=== PATIENT | male | born 1980 | race Caucasian/White ===

== ENCOUNTER 2018-08-13 14:27 | Emergency (ER) | payer OTHER ==
[~2018-08-13] VITALS: Ht 182.9 cm; Wt 141.1 kg
--- NOTE | 2018-08-13 14:30 | NUR ---
BIB RA 88,SEIZURE EPISODE WHILE AT WORK GROOMING A PUPPY, LAST SEIZURE WAS 2 YEARS AGO, NON-COMPLIANT W/ MEDICATION,MARIJUANA USER. SKIN IS WARM AND DIAPHORETIC. PLACED ON THE MONITOR. AWAITING MD FOR EVAL.
[2018-08-13 15:07] LABS: BASOPHILS % (AUTO) 0.6 % (0.0-2.0); EOSINOPHILS % (AUTO) 0.3 % (0.0-6.0); HEMATOCRIT 49 % (39-51); HEMOGLOBIN 16.4 g/dL (13.5-17.5); LYMPHOCYTES # (AUTO) 1.8 /CMM (0.8-4.8); LYMPHOCYTES % (AUTO) 24.1 % (20.0-44.0); MEAN CORPUSCULAR HGB CONC 34 g/dl (31.0-36.0); MEAN CORPUSCULAR VOLUME 88 fL (80-96); MONOCYTES # (AUTO) 0.2 /CMM (0.1-1.30); MONOCYTES % (AUTO) 2.1 % (2.0-12.0); NEUTROPHILS # (AUTO) 5.5 /CMM (1.8-8.9); NEUTROPHILS % (AUTO) 72.9 % (43.0-81.0); PLATELET COUNT (AUTO) 237 /CMM (150-450); RDW COEFFICIENT OF VARIATION 12.6 (11.5-15.0); RED BLOOD CELL COUNT(AUTO) 5.58 MIL/uL (4.5-6.0); WHITE BLOOD COUNT (AUTO) 7.5 K/uL (4.3-11.0)
[2018-08-13 15:19] LABS: CALCIUM, SERUM 9.1 mg/dL (8.5-10.1); CARBON DIOXIDE 19 mmol/L (21-32); CHLORIDE 103 mmol/L (98-107); CREATININE 1.3 mg/dL (0.6-1.3); GLUCOSE 154 mg/dL (74-106); POTASSIUM 3.7 mmol/L (3.5-5.1); SODIUM SERUM 142 mmol/L (136-145); UREA NITROGEN, BLOOD 12 mg/dL (7-18)
[2018-08-13 15:25] LABS: ALANINE AMINOTRANSFERASE 47 U/L (12-78); ALBUMIN 4.6 g/dL (3.4-5.0); ALCOHOL, BLOOD < 3 mg/dL (0-0); ALKALINE PHOSPHATASE 60 U/L (46-116); ASPARTATE AMINOTRANSFERASE 25 U/L (15-37); BILIRUBIN,DIRECT 0.1 mg/dL (0.0-0.2); BILIRUBIN,TOTAL 0.5 mg/dL (0.2-1.0); TOTAL PROTEIN, SERUM 7.7 g/dL (6.4-8.2)
[2018-08-13] MEDS: IV NS 0.9% 1,000 ML BAG IV ONE (15:49)
--- NOTE | 2018-08-13 15:52 | NUR ---
Pt is alert and oriented x 3, denies any pain or discomfort. Pt states that he does not remember the incident, but admits to having a seizure before, which he associates with heavily smoking marijuan. Pt resting comfortably, no acute s/s of distress noted at this time. will continue to monitor
[2018-08-13] MEDS: LEVETIRACETAM (500MG) 1,000 MG in IV NS 0.9% 100 ML IV SCH (16:30)
[2018-08-13] MEDS ORDERED: LEVETIRACETAM (250 MG) 250 MG TABLET PO ONE (16:30)
--- NOTE | 2018-08-13 16:45 | NUR ---
REPORT GIVEN TO IOANA PEDROZA FOR UZMA.
--- NOTE | 2018-08-13 18:23 | NUR ---
IV removed. Catheter intact and site benign. Pressure and 4x4 applied to site. No bleeding noted.
--- NOTE | 2018-08-13 18:23 | NUR ---
PT. VERBALIZED UNDERSTANDING OF AFTERCARE INSTRUCTIONS.Patient discharged to home in stable condition. Written and verbal after care instructions given. Patient verbalizes understanding of instruction.
[2018-08-13 18:25] VITALS: BP 134/77
== END 2018-08-13 18:25 | disposition home or self-care (01) ==
LOC: ER 14:31
DX: R56.9 Unspecified convulsions (principal); F17.200 Nicotine dependence, unspecified, uncomplicated
CPT/HCPCS: 36415; 70450; 80048; 80076; 80305; 85025; 93005; 96365; 99285; A4606; G0480; J1953; J7030 ×3; Z7610

== ENCOUNTER 2019-08-19 18:30 | Emergency (ER) | payer OTHER ==
[~2019-08-19] VITALS: Ht 193 cm; Wt 117.9 kg
--- NOTE | 2019-08-19 18:44 | NUR ---
PT CAME IN FOR A POST-ICTAL STAGE AFTER A WITNESSED SEIZURE AT HOME PER RA. PT BG IS 81. PT WAS CONFUSED WHEN BROUGHT INTO ER. PT KEPT IN BED W/ PADDED RAILS. NO SOB. NO NOTE DISTRESS. WILL CONTINUE TO MONITOR FOR SAFETY.
[2019-08-19] MEDS ORDERED: LORAZEPAM INJ 2 MG/ML VIAL IVP ONE (19:00)
[2019-08-19 19:07] LABS: BASOPHILS # (AUTO) 0.1 /CMM (0.0-0.2); BASOPHILS % (AUTO) 0.7 % (0.0-2.0); EOSINOPHILS % (AUTO) 1.2 % (0.0-6.0); HEMATOCRIT 48 % (39-51); HEMOGLOBIN 16.3 g/dL (13.5-17.5); LYMPHOCYTES # (AUTO) 3.5 /CMM (0.8-4.8); LYMPHOCYTES % (AUTO) 35.6 % (20.0-44.0); MEAN CORPUSCULAR HGB CONC 34 g/dl (31.0-36.0); MEAN CORPUSCULAR VOLUME 91 fL (80-96); MONOCYTES # (AUTO) 0.5 /CMM (0.1-1.30); MONOCYTES % (AUTO) 5.5 % (2.0-12.0); NEUTROPHILS # (AUTO) 5.6 /CMM (1.8-8.9); PLATELET COUNT (AUTO) 262 /CMM (150-450); WHITE BLOOD COUNT (AUTO) 9.8 K/uL (4.3-11.0)
[2019-08-19] MEDS ORDERED: LORAZEPAM INJ 2 MG/ML VIAL ONE (19:11)
[2019-08-19 19:16] LABS: CALCIUM, SERUM 9.1 mg/dL (8.5-10.1); CARBON DIOXIDE 20 mmol/L (21-32); CHLORIDE 102 mmol/L (98-107); CREATININE 1.2 mg/dL (0.6-1.3); GLUCOSE 90 mg/dL (74-106); POTASSIUM 3.8 mmol/L (3.5-5.1); SODIUM SERUM 140 mmol/L (136-145); UREA NITROGEN, BLOOD 15 mg/dL (7-18)
[2019-08-19 19:20] LABS: ALCOHOL, BLOOD < 3 mg/dL (0-0)
[2019-08-19] MEDS ORDERED: IV NS 0.9% 1,000 ML BAG IV ONE (20:00)
--- NOTE | 2019-08-19 20:03 | NUR ---
PT RECEIVED FROM IOANA WARD FOR UZMA. PT IN BED AAOX4. PT ON SEIZURE PRECAUTION, PADDED SIDERAILS IN PLACE.
[2019-08-19 21:32] LABS: BILIRUBIN,DIRECT 0.1 mg/dL (0.0-0.2); BILIRUBIN,TOTAL 0.5 mg/dL (0.2-1.0)
--- NOTE | 2019-08-19 21:55 | NUR ---
LACTIC 2.5
--- NOTE | 2019-08-19 22:57 | NUR ---
Patient discharged to home in stable condition. Written and verbal after care instructions given. Patient verbalizes understanding of instruction.IV removed. Catheter intact and site benign. Pressure and 4x4 applied to site. No bleeding noted. Pt ambulatory with a steady gait
[2019-08-19 23:43] VITALS: BP 173/88
== END 2019-08-19 22:57 | disposition home or self-care (01) ==
LOC: ER 18:33
DX: G40.909 Epilepsy, unspecified, not intractable, without status epilepticus (principal); F17.200 Nicotine dependence, unspecified, uncomplicated; R41.0 Disorientation, unspecified
CPT/HCPCS: 36415; 80048; 80305; 80307; 82247; 82248; 83605 ×2; 85025; 96361; 96374; 99283; J2060; J7030 ×2; G0480

== ENCOUNTER 2019-12-14 16:52 | Emergency (ER) | payer OTHER ==
[~2019-12-14] VITALS: Ht 185.4 cm; Wt 127.0 kg
--- NOTE | 2019-12-14 17:15 | NUR ---
SEEN BY DR. RUSSELL. AMBULATORY WITH STEADY GAIT.
--- NOTE | 2019-12-14 17:21 | NUR ---
Patient discharged to home in stable condition. Written and verbal after care instructions given. Patient verbalizes understanding of instruction.
[2019-12-14 17:24] VITALS: BP 169/86
== END 2019-12-14 17:25 | disposition home or self-care (01) ==
LOC: ER 16:52
DX: R56.9 Unspecified convulsions (principal); H11.33 Conjunctival hemorrhage, bilateral; F12.10 Cannabis abuse, uncomplicated

== ENCOUNTER 2020-01-16 13:43 | Emergency (ER) | payer OTHER ==
[~2020-01-16] VITALS: Ht 185.4 cm; Wt 127.0 kg
--- NOTE | 2020-01-16 13:50 | NUR ---
IV LINE ESTABLISHED, BLOOD DRAWN AND SENT TO LAB.
[2020-01-16] MEDS ORDERED: LORAZEPAM INJ 2 MG/ML VIAL ONE (13:54)
--- NOTE | 2020-01-16 13:55 | NUR ---
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 -TRAUMA, -HEAD INJURY. AOX4, TACHYCARDIC. RR EVEN AND UNLABORED ON 2L VIA NC. NO ACUTE DISTRESS NOTED. ON MONITOR AND SEIZURE PRECAUTIONS IN PLACE. READY FOR EVAL.
[2020-01-16] MEDS ORDERED: IV NS 0.9% 1,000 ML BAG IV ONE (14:00)
[2020-01-16] MEDS ORDERED: LORAZEPAM INJ 2 MG/ML VIAL IVP ONE (14:00)
[2020-01-16 14:09] LABS: BASOPHILS # (AUTO) 0.1 /CMM (0.0-0.2); BASOPHILS % (AUTO) 0.3 % (0.0-2.0); EOSINOPHILS % (AUTO) 1.5 % (0.0-6.0); HEMATOCRIT 47 % (39-51); HEMOGLOBIN 15.4 g/dL (13.5-17.5); LYMPHOCYTES # (AUTO) 7.4 /CMM (0.8-4.8); LYMPHOCYTES % (AUTO) 45.6 % (20.0-44.0); MEAN CORPUSCULAR HGB CONC 33 g/dl (31.0-36.0); MEAN CORPUSCULAR VOLUME 93 fL (80-96); MONOCYTES % (AUTO) 5.9 % (2.0-12.0); NEUTROPHILS # (AUTO) 7.6 /CMM (1.8-8.9); NEUTROPHILS % (AUTO) 46.7 % (43.0-81.0); PLATELET COUNT (AUTO) 281 /CMM (150-450); RED BLOOD CELL COUNT(AUTO) 5.12 MIL/uL (4.5-6.0); WHITE BLOOD COUNT (AUTO) 16.2 K/uL (4.3-11.0)
--- NOTE | 2020-01-16 14:15 | NUR ---
DR MCDUFFIE AT BEDSIDE
[2020-01-16 14:18] LABS: CALCIUM, SERUM 8.8 mg/dL (8.5-10.1); CARBON DIOXIDE 17 mmol/L (21-32); CHLORIDE 102 mmol/L (98-107); CREATININE 1.1 mg/dL (0.6-1.3); GLUCOSE 124 mg/dL (74-106); POTASSIUM 3.4 mmol/L (3.5-5.1); SODIUM SERUM 143 mmol/L (136-145); UREA NITROGEN, BLOOD 15 mg/dL (7-18)
[2020-01-16 14:23] LABS: ALANINE AMINOTRANSFERASE 43 U/L (12-78); ALBUMIN 4.8 g/dL (3.4-5.0); ALKALINE PHOSPHATASE 55 U/L (46-116); ASPARTATE AMINOTRANSFERASE 30 U/L (15-37); BILIRUBIN,DIRECT 0.1 mg/dL (0.0-0.2); BILIRUBIN,TOTAL 0.5 mg/dL (0.2-1.0); TOTAL PROTEIN, SERUM 7.8 g/dL (6.4-8.2)
[2020-01-16] MEDS ORDERED: LEVETIRACETAM (500MG) 500 MG in IV NS 0.9% 100 ML IV ONE (14:30)
[2020-01-16 14:41] LABS: ALCOHOL, BLOOD < 3 mg/dL (0-0)
[2020-01-16 15:27] VITALS: BP 125/81
--- NOTE | 2020-01-16 15:27 | NUR ---
IV removed. Catheter intact and site benign. Pressure and 4x4 applied to site. No bleeding noted.Patient discharged to home in stable condition. Written and verbal after care instructions given. Patient verbalizes understanding of instruction.
== END 2020-01-16 15:28 | disposition home or self-care (01) ==
LOC: ER 13:46
DX: R56.9 Unspecified convulsions (principal)
CPT/HCPCS: 36415; 80048; 80076; 80307; 85025; 96365; 96375; 99284; J1953; J2060; J7030 ×2; G0480

== ENCOUNTER 2020-11-02 15:17 | Emergency (ER) | payer OTHER ==
[~2020-11-02] VITALS: Ht 185.4 cm; Wt 86.6 kg
[~2020-11-02 15:17] MED LIST: LEVE500T20 PO
[2020-11-02] MEDS ORDERED: LEVETIRACETAM (500MG) 1,000 MG in IV NS 0.9% 100 ML IV SCH (15:30)
--- NOTE | 2020-11-02 15:30 | NUR ---
dr alexander at bedside for eval.
--- NOTE | 2020-11-02 15:40 | NUR ---
PT BIBRA FROM HOME TO ED BED 02 FOR SEIZURE NOTED 3 TIME TODAY. PT SEEN IN ED FOR SAME COMPLAIT. PT FEBRILE NEPHROLOGIST. PT IS VERBALLY RESPONSIVE, AAOX3 AWAITING MD RHODES.
--- NOTE | 2020-11-02 15:48 | NUR ---
radiology at bedside for chest xray.
[2020-11-02 16:12] LABS: BASOPHILS # (AUTO) 0.1 /CMM (0.0-0.2); BASOPHILS % (AUTO) 0.7 % (0.0-2.0); EOSINOPHILS % (AUTO) 0.1 % (0.0-6.0); HEMATOCRIT 45 % (39-51); HEMOGLOBIN 15.1 g/dL (13.5-17.5); LYMPHOCYTES # (AUTO) 0.7 /CMM (0.8-4.8); LYMPHOCYTES % (AUTO) 4.6 % (20.0-44.0); MEAN CORPUSCULAR HGB CONC 33 g/dl (31.0-36.0); MEAN CORPUSCULAR VOLUME 91 fL (80-96); MONOCYTES # (AUTO) 0.5 /CMM (0.1-1.30); MONOCYTES % (AUTO) 3.4 % (2.0-12.0); NEUTROPHILS # (AUTO) 13.6 /CMM (1.8-8.9); NEUTROPHILS % (AUTO) 91.2 % (43.0-81.0); RED BLOOD CELL COUNT(AUTO) 4.99 MIL/uL (4.5-6.0); WHITE BLOOD COUNT (AUTO) 14.9 K/uL (4.3-11.0)
--- NOTE | 2020-11-02 16:15 | NUR ---
LAB CALLED PT COVID RESULT POSITIVE (+)
[2020-11-02 16:16] LABS: CALCIUM, SERUM 8.7 mg/dL (8.5-10.1); CREATININE 1.2 mg/dL (0.6-1.3); POTASSIUM 4.1 mmol/L (3.5-5.1)
[2020-11-02 16:22] LABS: ALBUMIN 4.5 g/dL (3.4-5.0); BILIRUBIN,DIRECT 0.1 mg/dL (0.0-0.2); BILIRUBIN,TOTAL 0.4 mg/dL (0.2-1.0); TOTAL PROTEIN, SERUM 7.4 g/dL (6.4-8.2)
[2020-11-02] MEDS: KEPPRA 500 MG in IV NS 100 ML IV SCH ×2 (16:23→17:10)
[2020-11-02 16:38] LABS: PLATELET COUNT (AUTO) 222 /CMM (150-450)
--- NOTE | 2020-11-02 18:15 | NUR ---
Patient discharged to home in stable condition. Written and verbal after care instructions given. Patient verbalizes understanding of instruction.IV removed. Catheter intact and site benign. Pressure and 4x4 applied to site. No bleeding noted.
[2020-11-02 18:16] VITALS: BP 138/87
== END 2020-11-02 18:17 | disposition home or self-care (01) ==
LOC: ER 15:21
DX: G40.909 Epilepsy, unspecified, not intractable, without status epilepticus (principal); U07.1 COVID-19; R00.0 Tachycardia, unspecified; Z91.041 Radiographic dye allergy status; Z79.899 Other long term (current) drug therapy
CPT/HCPCS: 36415; 70450; 71045; 80048; 80076; 85025; 87426; 93005; 96365; 96366; 99285; C9803; J1953; J7030

== ENCOUNTER 2020-12-19 19:07 | Emergency (ER) | payer OTHER ==
[~2020-12-19] VITALS: Ht 193 cm; Wt 131.5 kg
[2020-12-19] MEDS ORDERED: LORAZEPAM INJ 2 MG/ML VIAL ONE (19:24)
--- NOTE | 2020-12-19 19:26 | NUR ---
CALLED PTS CELLPHONE. BROTHER JESU ANSWERED AND SAID HE WOULD BE THE ONE TO COMB MACHINE OPERATOR PT WHEN DISCHARGED. SANDRA CONTACT IS .
[2020-12-19] MEDS ORDERED: LORAZEPAM INJ 2 MG/ML VIAL IVP ONE (19:30)
[2020-12-19 19:37] LABS: BASOPHILS % (AUTO) 0.4 % (0.0-2.0); EOSINOPHILS % (AUTO) 2.4 % (0.0-6.0); HEMATOCRIT 45 % (39-51); HEMOGLOBIN 15.1 g/dL (13.5-17.5); LYMPHOCYTES # (AUTO) 5.7 /CMM (0.8-4.8); LYMPHOCYTES % (AUTO) 46.1 % (20.0-44.0); MEAN CORPUSCULAR HGB CONC 34 g/dl (31.0-36.0); MEAN CORPUSCULAR VOLUME 90 fL (80-96); MONOCYTES # (AUTO) 0.7 /CMM (0.1-1.30); MONOCYTES % (AUTO) 5.5 % (2.0-12.0); NEUTROPHILS # (AUTO) 5.7 /CMM (1.8-8.9); NEUTROPHILS % (AUTO) 45.6 % (43.0-81.0); PLATELET COUNT (AUTO) 251 /CMM (150-450); RED BLOOD CELL COUNT(AUTO) 4.99 MIL/uL (4.5-6.0); WHITE BLOOD COUNT (AUTO) 12.4 K/uL (4.3-11.0)
[2020-12-19 19:53] LABS: CREATININE 1.2 mg/dL (0.6-1.3); POTASSIUM 3.8 mmol/L (3.5-5.1)
[2020-12-19] MEDS ORDERED: LORA-259 PO (20:18)
--- NOTE | 2020-12-19 20:24 | NUR ---
JESU MORGAN 15 MINUTES
--- NOTE | 2020-12-19 20:47 | NUR ---
Patient discharged to home in stable condition. Rx and Written and verbal after care instructions given. Patient verbalizes understanding of instruction. IV removed. Catheter intact and site benign. Pressure and 4x4 applied to site. No bleeding noted.
[2020-12-19 20:48] VITALS: BP 142/88
== END 2020-12-19 20:48 | disposition home or self-care (01) ==
LOC: ER 19:08
DX: G40.909 Epilepsy, unspecified, not intractable, without status epilepticus (principal); F12.90 Cannabis use, unspecified, uncomplicated; Z88.8 Allergy status to other drugs, medicaments and biological substances; Z79.899 Other long term (current) drug therapy
CPT/HCPCS: 36415; 80048; 85025; 96374; 99283; J2060

== ENCOUNTER 2021-08-03 12:40 | Emergency (ER) | payer OTHER ==
[~2021-08-03] VITALS: Ht 193 cm; Wt 139.3 kg
[~2021-08-03 12:40] MED LIST changes: +LORA-259 PO
--- NOTE | 2021-08-03 12:50 | NUR ---
BIBRA99 FRM HOME FOR WITNESSED SEIZURE LASTING 1 MINUTE. BG 148 CYANIDE POT TENDER. VERBALLY RESPONSIVE, NO ORAL/HEAD TRAUMA, BREATHING EVEN AND NON LABORED, ATTACHED TO MONITOR
--- NOTE | 2021-08-03 14:06 | NUR ---
BLOOD SAMPLE PICKED UP BY LAB
[2021-08-03 14:12] LABS: BASOPHILS % (AUTO) 0.5 % (0.0-2.0); EOSINOPHILS % (AUTO) 0.9 % (0.0-6.0); HEMATOCRIT 46 % (39-51); HEMOGLOBIN 15.3 g/dL (13.5-17.5); LYMPHOCYTES # (AUTO) 2.9 K/uL (0.8-4.8); LYMPHOCYTES % (AUTO) 29.8 % (20.0-44.0); MEAN CORPUSCULAR HGB CONC 33 g/dl (31.0-36.0); MEAN CORPUSCULAR VOLUME 91 fL (80-96); MONOCYTES # (AUTO) 0.4 K/uL (0.1-1.30); MONOCYTES % (AUTO) 4.1 % (2.0-12.0); NEUTROPHILS # (AUTO) 6.4 K/uL (1.8-8.9); NEUTROPHILS % (AUTO) 64.7 % (43.0-81.0); PLATELET COUNT (AUTO) 240 K/uL (150-450); RED BLOOD CELL COUNT(AUTO) 5.08 MIL/uL (4.5-6.0); WHITE BLOOD COUNT (AUTO) 9.9 K/uL (4.3-11.0)
[2021-08-03 14:22] LABS: CALCIUM, SERUM 8.9 mg/dL (8.5-10.1); CARBON DIOXIDE 22 mmol/L (21-32); CHLORIDE 103 mmol/L (98-107); CREATININE 1.1 mg/dL (0.6-1.3); GLUCOSE 139 mg/dL (74-106); POTASSIUM 4.3 mmol/L (3.5-5.1); SODIUM SERUM 139 mmol/L (136-145); UREA NITROGEN, BLOOD 19 mg/dL (7-18)
[2021-08-03 14:23] LABS: ALCOHOL, BLOOD < 3 mg/dL (0-0)
[2021-08-03] MEDS ORDERED: IV NS 0.9% 1,000 ML BAG IV ONE (14:30)
[2021-08-03] MEDS ORDERED: ACETAMINOPHEN 325 MG TABLET PO ONE (15:00)
[2021-08-03] MEDS ORDERED: ACETAMINOPHEN 325 MG TABLET ONE ×2 (15:03)
[2021-08-03 16:00] VITALS: BP 129/80
== END 2021-08-03 16:01 | disposition home or self-care (01) ==
LOC: ER 12:44
DX: R56.9 Unspecified convulsions (principal); Z88.6 Allergy status to analgesic agent; Z79.899 Other long term (current) drug therapy
CPT/HCPCS: 36415; 80048; 80320; 83605 ×2; 85025; 99283; J7040; G0480

== ENCOUNTER 2021-09-08 17:37 | Emergency (ER) | payer OTHER ==
[~2021-09-08] VITALS: Ht 190.5 cm; Wt 144.2 kg
--- NOTE | 2021-09-08 17:51 | NUR ---
TO ER BED 3, BIB 88 FROM HOME C/O WITNESSED SEIZURE BY BROTHER FOR 1 MIN, AAOX3, BREATHING EVEN AND NON LABORED, CONNECTED TO MONITOR, INITIATE SEIZURE PRECAUTION
[2021-09-08 18:21] LABS: BASOPHILS # (AUTO) 0.1 K/uL (0.0-0.2); BASOPHILS % (AUTO) 0.5 % (0.0-2.0); EOSINOPHILS % (AUTO) 1.6 % (0.0-6.0); HEMATOCRIT 45 % (39-51); LYMPHOCYTES # (AUTO) 3.4 K/uL (0.8-4.8); LYMPHOCYTES % (AUTO) 30.8 % (20.0-44.0); MEAN CORPUSCULAR HGB CONC 33 g/dl (31.0-36.0); MEAN CORPUSCULAR VOLUME 91 fL (80-96); MONOCYTES # (AUTO) 0.6 K/uL (0.1-1.30); MONOCYTES % (AUTO) 5.4 % (2.0-12.0); NEUTROPHILS # (AUTO) 6.7 K/uL (1.8-8.9); NEUTROPHILS % (AUTO) 61.7 % (43.0-81.0); PLATELET COUNT (AUTO) 253 K/uL (150-450); RED BLOOD CELL COUNT(AUTO) 4.95 MIL/uL (4.5-6.0); WHITE BLOOD COUNT (AUTO) 10.9 K/uL (4.3-11.0)
[2021-09-08 18:30] LABS: CALCIUM, SERUM 8.9 mg/dL (8.5-10.1); CARBON DIOXIDE 16 mmol/L (21-32); CHLORIDE 103 mmol/L (98-107); CREATININE 1.3 mg/dL (0.6-1.3); GLUCOSE 106 mg/dL (74-106); POTASSIUM 3.8 mmol/L (3.5-5.1); SODIUM SERUM 140 mmol/L (136-145); UREA NITROGEN, BLOOD 18 mg/dL (7-18)
[2021-09-08 18:38] LABS: ALANINE AMINOTRANSFERASE 58 U/L (12-78); ALBUMIN 4.6 g/dL (3.4-5.0); ALCOHOL, BLOOD < 3 mg/dL (0-0); ALKALINE PHOSPHATASE 65 U/L (46-116); ASPARTATE AMINOTRANSFERASE 39 U/L (15-37); BILIRUBIN,DIRECT 0.1 mg/dL (0.0-0.2); BILIRUBIN,TOTAL 0.3 mg/dL (0.2-1.0); TOTAL PROTEIN, SERUM 7.7 g/dL (6.4-8.2)
[2021-09-08 19:09] VITALS: BP 133/68
== END 2021-09-08 19:09 | disposition home or self-care (01) ==
LOC: ER 17:38
DX: G40.909 Epilepsy, unspecified, not intractable, without status epilepticus (principal); F12.90 Cannabis use, unspecified, uncomplicated; Z88.8 Allergy status to other drugs, medicaments and biological substances; Z79.899 Other long term (current) drug therapy
CPT/HCPCS: 36415; 71045-TC; 80048-TC; 80076-TC; 85025-TC; 85730-TC; G0480

== ENCOUNTER 2022-09-10 16:22 | Inpatient (IN) | payer OTHER ==
[~2022-09-10] VITALS: Ht 190.5 cm; Wt 147.0 kg
[2022-09-10] MEDS ORDERED: LORAZEPAM INJ 2 MG/ML VIAL ONE ×2 (16:25→16:43)
[2022-09-10] MEDS ORDERED: LORAZEPAM INJ 2 MG/ML VIAL IVP ONE (16:30)
--- NOTE | 2022-09-10 16:41 | NUR ---
bib brother, had seizure episode, recently had brain sx. On 15 lpm via NRB 02 sat 100%. Kept comfortable, will continue to monitor accordingly.
[2022-09-10] MEDS ORDERED: ETOMIDATE 2 MG/ML VIAL IV ONE ×2 (17:00→21:00)
[2022-09-10] MEDS ORDERED: ROCURONIUM BROMIDE 100 MG/10 ML VIAL IV ONE (17:00)
[2022-09-10] MEDS ORDERED: LORAZEPAM INJ 2 MG/ML VIAL IV ONE (17:00)
[2022-09-10] MEDS ORDERED: PROPOFOL 100 ML IV ONE (17:00)
[2022-09-10] MEDS ORDERED: PROPOFOL 100 ML ONE ×2 (17:09→19:13)
[2022-09-10 17:12] LABS: BASOPHILS # (AUTO) 0.1 K/uL (0.0-0.2); BASOPHILS % (AUTO) 0.5 % (0.0-2.0); EOSINOPHILS % (AUTO) 0.8 % (0.0-6.0); HEMATOCRIT 46 % (39-51); HEMOGLOBIN 14.7 g/dL (13.5-17.5); LYMPHOCYTES # (AUTO) 11.9 K/uL (0.8-4.8); LYMPHOCYTES % (AUTO) 44.9 % (20.0-44.0); MEAN CORPUSCULAR HGB CONC 32 g/dl (31.0-36.0); MEAN CORPUSCULAR VOLUME 92 fL (80-96); MONOCYTES # (AUTO) 1.2 K/uL (0.1-1.30); MONOCYTES % (AUTO) 4.5 % (2.0-12.0); NEUTROPHILS % (AUTO) 49.3 % (43.0-81.0); PLATELET COUNT (AUTO) 281 K/uL (150-450); RED BLOOD CELL COUNT(AUTO) 5.01 MIL/uL (4.5-6.0); WHITE BLOOD COUNT (AUTO) 26.4 K/uL (4.3-11.0)
--- NOTE | 2022-09-10 17:16 | NUR ---
, RT, RN at bedside to intubate patient.
[2022-09-10] MEDS: LEVETIRACETAM (500MG) 1,500 MG in IV NS 0.9% 100 ML IV SCH ×2 (17:50→23:41)
[2022-09-10] MEDS ORDERED: [UNRECOGNIZED DRUG - CODE] PO (17:53)
[2022-09-10] MEDS ORDERED: BRIV100T PO (17:53)
[2022-09-10 17:54] LABS: ALANINE AMINOTRANSFERASE 47 U/L (12-78); ALBUMIN 4.3 g/dL (3.4-5.0); ALCOHOL, BLOOD < 3 mg/dL (0-0); ALKALINE PHOSPHATASE 77 U/L (46-116); ASPARTATE AMINOTRANSFERASE 29 U/L (15-37); BILIRUBIN,DIRECT 0.1 mg/dL (0.0-0.2); BILIRUBIN,TOTAL 0.3 mg/dL (0.2-1.0); CALCIUM, SERUM 8.8 mg/dL (8.5-10.1); CARBON DIOXIDE 14 mmol/L (21-32); CHLORIDE 96 mmol/L (98-107); CREATININE 1.7 mg/dL (0.6-1.3); GLUCOSE 254 mg/dL (74-106); SODIUM SERUM 137 mmol/L (136-145); TOTAL PROTEIN, SERUM 7.6 g/dL (6.4-8.2); UREA NITROGEN, BLOOD 19 mg/dL (7-18)
[2022-09-10] MEDS ORDERED: ATOR40TA PO (17:54)
[2022-09-10] MEDS ORDERED: IV NS 0.9% 1,000 ML BAG IV ONE ×2 (18:00→21:30)
[2022-09-10 18:06] LABS: PHENOBARBITAL 1 ug/ml (15-39); PHENYTOIN (DILANTIN) < 0.5 ug/ml (10.0-20.0)
[2022-09-10 18:07] LABS: VALPROIC ACID < 3 ug/mL (50-100)
[2022-09-10 18:10] LABS: ABG BASE EXCESS -9.4 mmol/L; ABG PCO2 53.6 mmHg (35.0-45.0); ABG PH 7.178 (7.350-7.450); ABG PO2 74.2 mmHg (75.0-100.0); COHb 0.3 % (0.5-1.5); MetHb 0.7 % (0.0-1.5); O2Hb 89.7 % (94.0-97.0); SITE, ABG Right Radial
--- NOTE | 2022-09-10 18:12 | NUR ---
RT NOTE PT INTUBATED IN ER @1715 FOR AIRWAY PROTECTION DUE TO SEIZURES. PT WAS INTUBATED WITH A 7.5 ETT 25CM AT THE LIP. POSITIVE COLOR CHANGE DETECTED AND BILATERAL BREATH SOUNDS HEARD. PT PLACED ON [facility] VENT SETTINGS AC 16 600 100% +8. AIRWAY IS PATENT AND SECURE WITH ALARMS ON AND AUDIBLE. VENT IS PLUGGED INTO RED OUTLET. AMBU BAG IS AT BEDSIDE. Addendum: 09/10/22 at 1817 by LUPE ROSE RT Amended: Links added.
--- NOTE | 2022-09-10 19:17 | NUR ---
replaced propofol drip by am nurse
--- NOTE | 2022-09-10 20:02 | NUR ---
DR CHANDRA PAGED PER DR BAKER.
--- NOTE | 2022-09-10 20:27 | NUR ---
ICU 262
[2022-09-10] MEDS ORDERED: HEPARIN INFUSION/D5W 500 ML IV ONE (20:41)
--- NOTE | 2022-09-10 20:45 | NUR ---
ac 16 600 8 992
--- NOTE | 2022-09-10 20:55 | NUR ---
troponin relayed to cardiology, orders to start heparin gtt. no bolus dose per ERMD
[2022-09-10] MEDS ORDERED: ROCURONIUM BROMIDE 50 MG/5 ML IV ONE (21:00)
[2022-09-10] MEDS ORDERED: HEPARIN INFUSION/D5W 500 ML IV PRN (21:00)
[2022-09-10] MEDS ORDERED: CEFEPIME 1 GM in IV D5W 50 ML IV ONE (21:30)
[2022-09-10] MEDS ORDERED: VANCOMYCIN 1 GM in IV D5W 250 ML IV ONE (21:30)
[2022-09-10] MEDS ORDERED: LEVETIRACETAM (500MG) 500 MG/5 ML VIAL IV ONE (21:34)
[2022-09-10] MEDS ORDERED: CEFEPIME 1 GM VIAL ONE (21:35)
[2022-09-10] MEDS: LEVETIRACETAM (500MG) 1,000 MG in IV NS 0.9% 100 ML IV SCH (21:36)
[2022-09-10 21:44] LABS: BILIRUBIN,URINE NEGATIVE (NEGATIVE); COLOR,URINE YELLOW (YELLOW); LEUKOCYTE ESTERASE ,URINE NEGATIVE (NEGATIVE); NITRITE, URINE NEGATIVE (NEGATIVE); PROTEIN,URINE TRACE mg/dl (NEGATIVE); UGLUCOSE 1+ mg/dL (NEGATIVE); UROBILINOGEN,URINE 0.2 EU/dL (0.2)
[2022-09-10] MEDS ORDERED: VANCOMYCIN 1 GM VIAL ONE (22:02)
[2022-09-10 22:48] LABS: BACTERIA,URINE None seen /HPF (None Seen); SQUAMOUS EPITHELIAL CELL,UR 0-2 /HPF (None Seen)
[2022-09-10 22:50] LABS: HYALINE CASTS, URINE Few /LPF (None Seen); URIC ACID CRYSTALS,URINE Many /HPF (None Seen)
[2022-09-10 23:00] LABS: CALCIUM PHOSPHATE CRYSTALS,UR Few /HPF (None Seen)
[2022-09-10] MEDS ORDERED: ACETAMINOPHEN 650 MG/SUPP.RECT RC PRN (23:00)
[2022-09-10] MEDS ORDERED: Z GUARD REMEDY 4 OZ OINT TP PRN (23:00)
[2022-09-10] MEDS ORDERED: ONDANSETRON HCL/PF 4 MG/2 ML VIAL IVP PRN (23:00)
[2022-09-10] MEDS: IV D5/0.45 NACL 1,000 ML IV PRN (23:14)
[2022-09-10] MEDS: PROPOFOL 100 ML IV PRN ×2 (23:15→23:42)
--- NOTE | 2022-09-10 23:18 | NUR ---
PT IS BEING TRANSFERRED TO ICU UNDER ACLS W/ RT AND RN
[2022-09-10 23:30] VITALS: BP 114/77
[2022-09-10 23:45] VITALS: BP 107/58
[2022-09-10] MEDS: HEPARIN INFUSION/D5W 500 ML IV PRN (23:49)
[2022-09-10] MEDS ORDERED: PIPERACILLIN /TAZOBACTAM 3.375 G VIAL IV ONE (23:50)
--- NOTE | 2022-09-10 23:50 | NUR ---
RN NOTE 2311 ADMITTED PT TO UNIT WITH DX OF STATUS EPILEPTICUS. PT ORALLY INTUBATED CONNECTED TO VENT WITH SETTINGS OF AC 16 TV 600 FIO2 100% AND P 8. SATURATING 98%. SEDATED WITH PROPOFOL AT 50MCG/KG/MIN AND HEPARIN DRIP AT 2175U/HR. NO SIGNS OF BLEEDING. OGT IN PLACE, PATENT. MULLER CATH IN PLACE, DRAINING URINE BY GRAVITY. ALL SAFETY MEASURES IN PLACE PER PROTOCOL. SEIZURE PRECAUTION IN PLACE. WILL CONTINUE TO MONITOR.
[2022-09-10] MEDS: ZOSYN IVPB 3.375 G in IV D5W 50ml IV SCH (23:51)
[2022-09-11] VITALS (66 sets, daily range): BP systolic 103–163; BP diastolic 58–147
[2022-09-11 00:24] LABS: ABG BASE EXCESS -1.8 mmol/L; ABG OXYGEN SATURATION 97.7 % (92.0-98.5); ABG PCO2 45.1 mmHg (35.0-45.0); ABG PH 7.345 (7.350-7.450); ABG PO2 111.7 mmHg (75.0-100.0); AaDO2 556.2 mmHg; COHb 0.2 % (0.5-1.5); MetHb 0.4 % (0.0-1.5); O2Hb 97.1 % (94.0-97.0); PEEP,BG 8 cm H2O; SITE, ABG Right Radial; VENT MODE, BG AC16 VT600 100% PEEP+8; VT, ABG 600 mL
--- NOTE | 2022-09-11 01:00 | NUR ---
RN NOTE TROPONIN LEVEL 03221 REPORTED TO LOAD MIXER HENDERSON, WITH NO NEW ORDERS, CONTINUE ON HEPARIN DRIP. AND PER LOAD MIXER TO GIVE PT HOME SEIZURE MEDICATIONS CENOBAMATE AND BRIVARACETAM. CALLED PT BROTHER ACOSTA TO BRING TO THE HOSP. CHARGE NURSE MADE AWARE.
[2022-09-11] MEDS ORDERED: BRIVARACETAM 50 MG NG SCH (01:30)
[2022-09-11] MEDS ORDERED: CENOBAMATE NG SCH (01:30)
--- NOTE | 2022-09-11 01:30 | NUR ---
RN NOTE PT HOME SEIZURE MEDICATIONS CENOBAMATE AND BRIVARACETAM GIVEN PER PARKING MANAGER HENDERSON ORDER. CONTINUE TO MONITOR.
[2022-09-11] MEDS: PROPOFOL 100 ML IV PRN ×5 (01:33→22:16)
[2022-09-11 04:09] LABS: BASOPHILS % (AUTO) 0.2 % (0.0-2.0); HEMATOCRIT 43 % (39-51); HEMOGLOBIN 14.6 g/dL (13.5-17.5); LYMPHOCYTES # (AUTO) 1.6 K/uL (0.8-4.8); LYMPHOCYTES % (AUTO) 11.8 % (20.0-44.0); MEAN CORPUSCULAR HGB CONC 34 g/dl (31.0-36.0); MEAN CORPUSCULAR VOLUME 88 fL (80-96); MONOCYTES % (AUTO) 7.2 % (2.0-12.0); NEUTROPHILS % (AUTO) 80.8 % (43.0-81.0); PLATELET COUNT (AUTO) 223 K/uL (150-450); RED BLOOD CELL COUNT(AUTO) 4.93 MIL/uL (4.5-6.0); WHITE BLOOD COUNT (AUTO) 13.7 K/uL (4.3-11.0)
[2022-09-11 04:26] LABS: CALCIUM, SERUM 7.8 mg/dL (8.5-10.1); CREATININE 1.1 mg/dL (0.6-1.3); MAGNESIUM 2.5 mg/dL (1.8-2.4); PHOSPHORUS 4.4 mg/dL (2.5-4.9); POTASSIUM 3.7 mmol/L (3.5-5.1)
[2022-09-11 04:35] LABS: THYROID STIMULATING HORMONE 0.44 uIU/mL (0.358-3.74)
[2022-09-11] MEDS ORDERED: PIPERACILLIN /TAZOBACTAM 3.375 G VIAL IV ONE (05:56)
[2022-09-11] MEDS: ZOSYN IVPB 3.375 G in IV D5W 50ml IV SCH (05:58)
--- NOTE | 2022-09-11 07:46 | NUR ---
RN CLOSING NOTES PT REMAIN SEDATED WITH PROPOFOL AT 50MCG/KG/MIN. NO DISTRESS NOTED. NO EPISODE OF SEIZURE NOTED DURING SHIFT. CONTINUE PRECAUTION. RT TITRATED FIO2 TO 80%, PT TOLERATING WITH O2 SAT AT 98%. CONTINUE WITH HEPARIN DRIP. PTT 60.5. NO CHANGE IN RATE PER PROTOCOL. NO SIGNS OF BLEEDING NOTED. TROPONIN LEVEL TRENDING DOWN. ENDORSED TO AM SHIFT NURSE FOR UZMA.
[2022-09-11 08:32] LABS: ABG BASE EXCESS -2.2 mmol/L; ABG OXYGEN SATURATION 98.4 % (92.0-98.5); ABG PCO2 36.2 mmHg (35.0-45.0); ABG PH 7.401 (7.350-7.450); ABG PO2 124.7 mmHg (75.0-100.0); AaDO2 407.7 mmHg; COHb 0.5 % (0.5-1.5); MetHb 0.2 % (0.0-1.5); O2Hb 97.7 % (94.0-97.0); PEEP,BG 8 cm H2O; SITE, ABG Right Radial; VT, ABG 600 mL
--- NOTE | 2022-09-11 08:37 | NUR ---
VENT CHANGES BELOW PER DR. MONTANO: FIO2 50% PEEP +5 Addendum: 09/11/22 at 0837 by THALIA RAINEY RT Amended: Links added.
[2022-09-11] MEDS: CENOBAMATE 100 MG NG SCH ×2 (09:00→22:48)
[2022-09-11] MEDS: PANTOPRAZOLE 40 MG VIAL IV SCH (09:04)
[2022-09-11] MEDS: HEPARIN INFUSION/D5W 500 ML IV PRN ×2 (09:21→21:05)
[2022-09-11] MEDS: LEVETIRACETAM (500MG) 1,000 MG in IV NS 0.9% 100 ML IV SCH ×2 (09:48→21:03)
[2022-09-11] MEDS: BRIVIACT NG SCH ×2 (09:49→18:42)
[2022-09-11] MEDS: PIPERACILLIN /TAZOBACTAM 3.375 G in IV D5W 100 ML IV SCH ×2 (13:47→21:42)
[2022-09-11] MEDS ORDERED: ASPIRIN EC 325 MG TABLET.DR PO SCH (18:30)
[2022-09-11] MEDS ORDERED: METOPROLOL TARTRATE 25 MG TABLET PO SCH (18:30)
--- NOTE | 2022-09-11 19:34 | NUR ---
RECEIVED THE PATIENT FROM LINDA TRIPLETT , PATIENT IS SEDATED ON A PROPOFOL DRIP, TOLERATING HIS TREATMENT, ATTEMPT TO REDUCE PROPOFOL DRIP WAS UNSUCCESSFUL, PATIENT BECAME AGITATED AND ATTEMPTED TO GET OOB AND WAS BUCKING THE VENT. PATIENT PROVIDED HYGIENE CASE PER PROTOCOL ALL ORDERED MEDICATIONS PROVIDE (SEE eMAR). MULLER CATHETER AND DRAINING TEA COLOR URINE. SEE REQUIRED ASSESSMENT FOR ADDITIONAL INFORMATION. BEDSIDE REPORT GIVEN TO THE ONCOMING NURSE PATIENT UIS STABLE ON THE ED IN THE LOWEST POSITION, CALL EGAN WITHIN REACH
--- NOTE | 2022-09-11 20:20 | NUR ---
RN NOTE RECEIVED PT ORALLY INTUBATED CONNECTED TO VENT. NOT IN ANY DISTRESS. SEDATED ON PROPOFOL AT 50MCG/KG/MIN. ON HEPARIN DRIP AT 2175U/HR. MULLER DRAINING CHARLES COLORED URINE. WILL CONTINUE TO MONITOR.
[2022-09-11] MEDS ORDERED: ATORVASTATIN 40 MG TABLET PO SCH (23:46)
[2022-09-12] VITALS (32 sets, daily range): BP systolic 113–148; BP diastolic 67–93
[2022-09-12] MEDS: PROPOFOL 100 ML IV PRN ×16 (00:28→23:00)
[2022-09-12] MEDS: PIPERACILLIN /TAZOBACTAM 3.375 G in IV D5W 100 ML IV SCH ×3 (04:54→21:48)
[2022-09-12 05:03] LABS: BASOPHILS # (AUTO) 0.1 K/uL (0.0-0.2); BASOPHILS % (AUTO) 1.2 % (0.0-2.0); EOSINOPHILS % (AUTO) 0.4 % (0.0-6.0); HEMATOCRIT 41 % (39-51); HEMOGLOBIN 14.3 g/dL (13.5-17.5); LYMPHOCYTES # (AUTO) 2.7 K/uL (0.8-4.8); LYMPHOCYTES % (AUTO) 29.9 % (20.0-44.0); MEAN CORPUSCULAR HGB CONC 35 g/dl (31.0-36.0); MEAN CORPUSCULAR VOLUME 88 fL (80-96); MONOCYTES # (AUTO) 0.8 K/uL (0.1-1.30); MONOCYTES % (AUTO) 8.8 % (2.0-12.0); NEUTROPHILS # (AUTO) 5.5 K/uL (1.8-8.9); NEUTROPHILS % (AUTO) 59.7 % (43.0-81.0); PLATELET COUNT (AUTO) 174 K/uL (150-450); RED BLOOD CELL COUNT(AUTO) 4.68 MIL/uL (4.5-6.0); WHITE BLOOD COUNT (AUTO) 9.1 K/uL (4.3-11.0)
[2022-09-12 05:20] LABS: ALBUMIN 3.2 g/dL (3.4-5.0); BILIRUBIN,TOTAL 1.1 mg/dL (0.2-1.0); MAGNESIUM 2.4 mg/dL (1.8-2.4); PHOSPHORUS 1.8 mg/dL (2.5-4.9); POTASSIUM 3.5 mmol/L (3.5-5.1)
--- NOTE | 2022-09-12 05:30 | NUR ---
RN NOTE PT GETS AGITATED. UNABLE TO CALM DOWN WITH VERBAL. NOTIFIED FIREARMS EXPERT DAIRY PROCESSING SUPERVISOR. ORDERED TO MAY INCREASE PROPOFOL TO 100MCG/KG/MIN. WILL TITRATE PER PROTOCOL.
[2022-09-12 06:17] LABS: TOTAL PROTEIN, SERUM 6.2 g/dL (6.4-8.2)
[2022-09-12] MEDS: IV D5/0.45 NACL 1,000 ML IV PRN ×2 (06:19→17:02)
--- NOTE | 2022-09-12 06:56 | NUR ---
RN NOTE PROPOFOL NOW AT 65MCG/KG.MIN. PT LOOKS COMFORTABLE. RESPONDS TO STIMULI. NOT IN ANY DISTRESS, REMAINS WITH VENT SETTINGS. MULLER DRAINING WELL. SUCTIONED NEEDED. ON HEPARIN DRIP AT 2175U/HR. AWAITING FOR PTT RESULTS. WILL ENDORSE TO AM SHIFT NURSE FOR UZMA.
--- NOTE | 2022-09-12 07:05 | NUR ---
PICTURE FRAMES INSPECTOR Bedside report taken from [facility] nurse Rosa M TRIPLETT. pt sedated and intubated. pt arousable, does not follow commands, opens eyes, perrla, moves bue and ble 3/[address] place. pt on ac vent setting with fio2 50%, pt tolerating well. spo2 100%, ricardo. lung sounds clear. pt nsr on monitor, bue and ble pulses present. pt has ogt, npo at this time, bowel sounds present, abdomen soft to touch. pt has del rosario intact and draining clear dawson color urine. skin check done no new wounds noted. all lines traced. all drips verified. safety measures in place. no signs of acute distress at this time. will continue to monitor.
--- NOTE | 2022-09-12 07:25 | NUR ---
WOUND CARE CONSULT: PT SEEN FOR SKIN ASSESSMENT AND NOTED TO HAVE NEED FOR BARIATRIC BED. BARIMAX ETS AIR BED IS ON ORDER. RECOMMENDATIONS MADE FOR SKIN PROTECTION. DISCUSSED WITH NURSING STAFF. PT IS IMMOBILE AND INTUBATED AT THIS TIME. MULLER CATH NOTED. MD IN AGREEMENT WITH PLAN OF CARE.
--- NOTE | 2022-09-12 07:41 | NUR ---
CALLED LAB TO FOLLOWUP PTT RESULTS. PER LAB THEY HAVE TO SEND IT TO [facility]. CHARGE NURSE MADE AWARE
[2022-09-12] MEDS: PANTOPRAZOLE 40 MG VIAL IV SCH (08:19)
[2022-09-12] MEDS: BRIVIACT NG SCH (08:19)
[2022-09-12] MEDS: METOPROLOL TARTRATE 25 MG TABLET NG SCH ×2 (08:20→16:05)
[2022-09-12] MEDS: HEPARIN INFUSION/D5W 500 ML IV PRN ×2 (08:22→20:44)
[2022-09-12] MEDS: ASPIRIN 325 MG TABLET NG SCH (08:27)
[2022-09-12] MEDS ORDERED: K PHOS NEUTRAL 250 MG TABLET PO ONE (08:30)
--- NOTE | 2022-09-12 08:55 | NUR ---
AUTOMATIC BLOCKER Dr Amado at bedside assessing pt and updated on pt status. no new orders at this time. will continue to monitor.
--- NOTE | 2022-09-12 09:29 | NUR ---
AUTOMATIC LUMP MAKING MACHINE TENDER Spoke to pharmacist Connor and informed of pt PTT 38.7. will adjust dosage per protocol.
[2022-09-12] MEDS: LEVETIRACETAM (500MG) 1,000 MG in IV NS 0.9% 100 ML IV SCH (09:44)
[2022-09-12] MEDS ORDERED: ACETAMINOPHEN 650 MG/20.3 ML UDC NG PRN (11:35)
--- NOTE | 2022-09-12 11:54 | NUR ---
STRUCTURAL DRAFTER Dr Delacruz at bedside assessing pt and updated on pt status. md talking to pt parents about pt condition and plan of care. no new orders at this time. awaiting weaning trial until after neurology consult
--- NOTE | 2022-09-12 12:05 | NUR ---
OUTBOARD MOTOR TESTER Dr Jacob neurologist on phone talking with pt mother and father about pt condition and reviewing pt medications with parents. md discussing pt plan of care. photo of pt med list taken and sent to dr Jacob per md request and pt [facility] neurologist Dr Farrell phone number given to Dr Jacob for Dr to discussion. no other orders at this time per md. pt parents still on phone with MD. Charge nurse Urmila TRIPLETT updated.
--- NOTE | 2022-09-12 14:15 | NUR ---
HAND METHOD LASTING MACHINE OPERATOR Dr Jacob messaged per family request to follow up on when md will come to see pt. no response at this time. charge nurse aware. will follow up.
--- NOTE | 2022-09-12 14:30 | NUR ---
TREE CLIMBER pt parents brought in home meds, home meds brought to pharmacy given to [place]
[2022-09-12] MEDS ORDERED: ATOR40TA PO (15:00)
[2022-09-12] MEDS ORDERED: AZIL80TA PO (15:00)
[2022-09-12] MEDS ORDERED: AMLO-213 PO (15:00)
--- NOTE | 2022-09-12 15:48 | NUR ---
PURSE MAKER Dr Jacob at bedside assessing pt and updated on pt status. md talking with pt mother and father obtaining history, treatment information, medication information and updating them on pt plan of care. Md talking to pt neurologist at [facility] Dr George on phone discussing treatment and medications. informed that per Connor from pharmacy, medication orders and recon need to be done so that pt is getting approriate medication and dosages, ok per md. new orders pending.
[2022-09-12] MEDS ORDERED: LACOSAMIDE 200 MG in IV NS 0.9% 100 ML IV ONE (16:00)
--- NOTE | 2022-09-12 16:00 | NUR ---
SENIOR INVESTIGATOR pt bathed and cleaned. linen change done, skin check done, no new wounds noted. pt tolerated well. vitals stable. will continue to monitor.
--- NOTE | 2022-09-12 19:06 | NUR ---
MARBLE INSTALLER SUPERVISOR Bedside report given to [facility] nurse catherine TRIPLETT. Pt sedated and intubated. all lines traced. all drips verified. safety meaures in place. pt clean and dry. no signs of acute distress at this time.
--- NOTE | 2022-09-12 20:30 | NUR ---
RN NOTE PT INTUBATED AND SEDATED WITH PROPOFOL AT 85MCG/KG/MIN. NO SIGNS OF DISTRESS NOTED. CONTINUE WITH HEPARIN DRIP, NEXT PTT AT 2345. IV LINES PATENT AND INTACT. PT FAMILY CAME TO VISIT. WILL CONTINUE TO MONITOR.
[2022-09-12] MEDS: LACOSAMIDE 150 MG in IV NS 0.9% 50 ML IV SCH (20:45)
[2022-09-12] MEDS: ATORVASTATIN 40 MG TABLET NG SCH (22:11)
[2022-09-13] VITALS (25 sets, daily range): BP systolic 106–168; BP diastolic 65–110
[2022-09-13] MEDS: PROPOFOL 100 ML IV PRN ×7 (00:16→08:04)
--- NOTE | 2022-09-13 02:48 | NUR ---
PT RCVD ORALLY INTUBATED W ETT 7.5 SECURED @ 25 CM LIP LINE. PT IS SEDATED VENT PLUGGED INTO RED OUTLET. VENT ALARMS ON AND AUDIBLE. AMBU BAG @BEDSIDE. NO RESPIRATORY DISTRESS NOTED AT THIS TIME. WILL CONTINUE TO MONITOR T/O SHIFT.
--- NOTE | 2022-09-13 03:00 | NUR ---
RN NOTE PTT 36. WRONG DATE INPUT BY LAB, WAS PUT ON 09/12. UNABLE TO EDIT DATE PER LAB. INCREASED HEPARIN DRIP RATE BY 200U/HR PER PROTOCOL. NOW AT 2275U/HR NO SIGNS OF BLEEDING. NEXT PTT AT 0900 WILL CONTINUE TO MONITOR
[2022-09-13] MEDS: IV D5/0.45 NACL 1,000 ML IV PRN (05:12)
[2022-09-13] MEDS: PIPERACILLIN /TAZOBACTAM 3.375 G in IV D5W 100 ML IV SCH ×3 (05:23→21:07)
[2022-09-13 05:56] LABS: BASOPHILS % (AUTO) 0.7 % (0.0-2.0); EOSINOPHILS % (AUTO) 2.9 % (0.0-6.0); HEMATOCRIT 38 % (39-51); HEMOGLOBIN 12.6 g/dL (13.5-17.5); LYMPHOCYTES % (AUTO) 33.3 % (20.0-44.0); MEAN CORPUSCULAR HGB CONC 34 g/dl (31.0-36.0); MEAN CORPUSCULAR VOLUME 90 fL (80-96); MONOCYTES # (AUTO) 0.5 K/uL (0.1-1.30); MONOCYTES % (AUTO) 8.1 % (2.0-12.0); NEUTROPHILS # (AUTO) 3.3 K/uL (1.8-8.9); PLATELET COUNT (AUTO) 164 K/uL (150-450); RED BLOOD CELL COUNT(AUTO) 4.19 MIL/uL (4.5-6.0); WHITE BLOOD COUNT (AUTO) 6.1 K/uL (4.3-11.0)
--- NOTE | 2022-09-13 07:00 | NUR ---
TREE CHIPPER Bedside report taken from [facility] nurse Rosa M TRIPLETT. pt sedated and intubated. pt arousable, does not follow commands, does opens eyes, perrla, moves bue and ble 3/5 ricardo wrist restraints in place. pt on ac vent setting with fio2 40%, pt tolerating well. spo2 100%, ricardo. lung sounds clear. pt nsr on monitor, bue and ble pulses present. pt has ogt, npo at this time, bowel sounds present, abdomen soft to touch. pt has del rosario intact and draining clear dawson color urine. skin check done no new wounds noted. all lines traced. all drips verified. safety measures in place. no signs of acute distress at this time. will continue to monitor.
--- NOTE | 2022-09-13 07:07 | NUR ---
RN NOTE PT REMAIN SEDATED WITH THE SAME VENT SETTINGS. TOLERATING WELL. NO DISTRESS NOTED. IV LINES PATENT AND INTACT. NO S/SX OF INFILTRATION NOTED. REMAIN AFEBRILE. NO SEIZURE NOTED ON SHIFT. ENDORSED TO HIRAL FOR UZMA.
--- NOTE | 2022-09-13 07:22 | NUR ---
RN NOTE PER BEST MACARIO TO CONTINUE PT HOME MED EDARBI. NOTIFIED PHARMACIST
--- NOTE | 2022-09-13 07:45 | NUR ---
PLASTER BLOCK LAYER Dr Jacob at bedside assessing pt and updated on pt status. ok per md to wean and extubate pt at Dr Amado orders. vitals stable. no new orders at this time.
[2022-09-13] MEDS ORDERED: DC PROPOFOL WHEN EXTUBATED XX PRN (08:00)
[2022-09-13] MEDS: EDARBI 80 MG NG SCH (08:03)
[2022-09-13] MEDS: METOPROLOL TARTRATE 25 MG TABLET NG SCH ×2 (08:03→16:01)
[2022-09-13] MEDS: PANTOPRAZOLE 40 MG VIAL IV SCH (08:03)
[2022-09-13] MEDS: ASPIRIN 325 MG TABLET NG SCH (08:03)
--- NOTE | 2022-09-13 08:07 | NUR ---
RECTIFIER OPERATOR fio2 weaned down to 40% by RT. pt tolerating well.
[2022-09-13] MEDS: LACOSAMIDE 150 MG in IV NS 0.9% 50 ML IV SCH ×2 (08:52→20:49)
[2022-09-13] MEDS: HEPARIN INFUSION/D5W 500 ML IV PRN (08:54)
--- NOTE | 2022-09-13 08:55 | NUR ---
WOOD SCRAP HANDLER 0820- Propofol off. pt awake, alert and follows commands, moves bue and ble. awaiting md order to wean. 0840- Pt placed on pressure support per Dr Amado order. pt tolerating well, vitals wnl but pt restless. 0845- Dr Amado at bedside assessing pt and updating on pt status. md assessing pt rediness to extubate. ok to extubate per md order. 0855- Pt extubated and placed on 6 L n/c, charge nurse Urmila TRIPLETT, Dr Amado, RT x3 at bedside. pt awake alert slightly disoriented but follows commands and moves bue and ble. pt tolerating well. safety measures in place. vitals stable. will continue to monitor.
--- NOTE | 2022-09-13 09:00 | NUR ---
CASTING CARRIER 0900 PTT 48.6 per protocol no change in heparin drip rate, keep rate the same 22.75 units/hr verified with charge nurse Urmila TRIPLETT
[2022-09-13 09:08] LABS: CALCIUM, SERUM 7.6 mg/dL (8.5-10.1); CREATININE 0.9 mg/dL (0.6-1.3); PHOSPHORUS 7.5 mg/dL (2.5-4.9); POTASSIUM 3.1 mmol/L (3.5-5.1)
--- NOTE | 2022-09-13 09:20 | NUR ---
CARDROOM MANAGER lab called for critical glucose level 403. Pt has d5 ivf running. Blood sugar check done on opposite arm, pt bs 101. charge nurse Urmila TRIPLETT aware.
--- NOTE | 2022-09-13 09:55 | NUR ---
LIQUOR ESTABLISHMENT MANAGER Pt extremely aggitated, aggressive and combative. pt broke ricardo wrist restraints, pt wripped IV tubing and removed PIVs. pt attempting to hit and punch staff that come near him. ez clifford called. pt out of room in hallway dripping blood, and screaming in aggression. Attempts to deescalate the situation and calm pt unsuccessful. attempt to keep pt safe unsuccessful. talked pt into going back to room and back into bed. pt back in bed aggressively trashing, screaming and combative with anyone who attempts to provide care. ez clifford team, security, ER team, charge nurse Urmila TRIPLETT, nursing supervisor [employer] department Audrey and Benjamín Cordoba at bedside. Benjamín Cordoba talking to pt and explaining what happened. upon assessment of del rosario catheter, part of catheter missing, stat US ordered, US shows part of del rosario remained in bladder, active bleeding from penis noted. Urology contacted by Benjamín Cordoba for del rosario removal, awaiting schedule time. pt vitals stable. pt parents arrived, situation explained to parents, pt expected pt to act aggressively once off sedation and extubated because according to parents pt is very aggressive and mood fluctuates at baseline. pt back in bed. safety measures in place. pt parents at bedside calming pt. awaiting new orders.
--- NOTE | 2022-09-13 10:00 | NUR ---
BASKET HAND WEAVER All IV drips stopped at this time, including heparin drip d/t active bleeding, benjamín cordoba aware. Dr Delacruz contacted by Benjamín Cordoba and updated on pt condition and events. no new orders at this time.
[2022-09-13] MEDS ORDERED: PRECEDEX 400 MCG/100 ML BOTTLE 100 ML IV STA (10:05)
--- NOTE | 2022-09-13 10:50 | NUR ---
SENIOR TECHNICAL SPECIALIST Pt bathed and cleaned. linen change done. pt tolerated well. pt voided 200 ml bloody urine. parents at bedside. vitals stable. safety measures in place. no signs of acute distress at this time.
[2022-09-13] MEDS ORDERED: POTASSIUM CHLORIDE 20 MEQ TAB.PRT.SR PO ONE (14:00)
--- NOTE | 2022-09-13 15:00 | NUR ---
AUTOMATED PROCESS OPERATOR Dr De Los Santos aware that heparin drip stopped because pt has urethral bleeding. ok per md. telephone orders entered to d/c heparin drip. charge nurse Urmila TRIPLETT aware
--- NOTE | 2022-09-13 15:10 | NUR ---
SECOND MATE Consent for removal of foreign body signed by pt mother and placed in pt chart. procedure scheduled for 2021
--- NOTE | 2022-09-13 15:18 | NUR ---
ASSISTED LIVING EXECUTIVE DIRECTOR Pt ambulated to bathroom had bm. pt linen changed. pt tolerated well. vitals stable. gait stable. pt back in bed. safety measures in place. will continue to monitor.
--- NOTE | 2022-09-13 16:26 | NUR ---
OPERATIONS CONSULTANT Spoke to Dr Tovar on phone and updated on pt status, condition and events in the morning as well as pt demeanor, and behaviors. verbal order taken for stat psych consult, verbal order entered per md and verified with charge nurse Urmila TRIPLETT. no other orders at this time. will continue to monitor.
--- NOTE | 2022-09-13 19:00 | NUR ---
APPLIANCE WORKER Bedside report given to [facility] nurse Mcintyre. pt awake, confused, follows commands but calm and resting comfortable in bed with father at bedside at this time. all lines traced. vitals stable. safety measures in place. pt clean and dry. no signs of acute distress at this time.
--- NOTE | 2022-09-13 19:30 | NUR ---
ICU/DIESEL ELECTRICIAN PT REFUSED TO HAVE IV FLUIDS. PT STARTED GETTING AGITATED, VOICE INCREASED, PT SAID HE DOESN'T LIKE THE WAY IT TOUCHES HIS HAND. EXPLAINED THAT IT'S NEEDED. HOWEVER PT REFUSED TO LISTEN. VOICE INCREASED AGAIN. IVF WAS THEN HEPLOCK TO AVOID ANY FURTHER SITUATIONS LIKE THE ONE FROM JOANIELISHERRI IN THE SHIFT. WILL MONITOR THIS PT.
[2022-09-13] MEDS ORDERED: MORPHINE SULFATE INJ 2 MG/ML DISP.SYRIN IV PRN (20:00)
--- NOTE | 2022-09-13 20:15 | NUR ---
ICU/AIRPORT MANAGER PT GOT UP TO THE BATHROOM, BIGHT RED BLOOD COME OUT FROM PT'S PENIS. HEPARIN DRIP WAS D/C'D, DURING DAY SHIFT. PT VOIDED AND HAD A BM. PT ASST. BACK TO BED AND CLEANED UP. WILL MONITOR THIS PT.
[2022-09-13] MEDS: ATORVASTATIN 40 MG TABLET NG SCH (22:44)
--- NOTE | 2022-09-13 23:40 | NUR ---
ICU/RECYCLE COORDINATOR PT WANTED TO USE THE BATHROOM HOWEVER DUE TO THE TIME PT WAS UP TO THE BATHROOM, IT WAS GIVEN A BED KIM INSTEAD. PT HAD A BM THEN WAS CLEANED UP. PT TOLERATED THIS WELL. CALL LIGHT WITHIN REACH. WILL CONTINUE TO MONITOR THIS PT.
[2022-09-14] VITALS (19 sets, daily range): BP systolic 129–157; BP diastolic 70–104
--- NOTE | 2022-09-14 02:10 | NUR ---
ICU/INSULATION WORKER PT WANTED TO USE THE BATHROOM, PT WAS THEN GIVEN A BED KIM. PT HAD A BM THEN WAS CLEANED UP. PT TOLERATED THIS WELL. CALL LIGHT WITHIN REACH. WILL CONTINUE TO MONITOR THIS PT.
--- NOTE | 2022-09-14 03:39 | NUR ---
ICU/SMALL ORDER CUTTER FATHER AT BEDSIDE, PT REMAINS CALM WITH FATHER AT BEDSIDE.
[2022-09-14] MEDS: PIPERACILLIN /TAZOBACTAM 3.375 G in IV D5W 100 ML IV SCH ×3 (04:19→20:16)
[2022-09-14 06:14] LABS: BASOPHILS # (AUTO) 0.1 K/uL (0.0-0.2); BASOPHILS % (AUTO) 0.6 % (0.0-2.0); EOSINOPHILS % (AUTO) 0.3 % (0.0-6.0); HEMATOCRIT 38 % (39-51); HEMOGLOBIN 13.2 g/dL (13.5-17.5); LYMPHOCYTES # (AUTO) 2.2 K/uL (0.8-4.8); MEAN CORPUSCULAR HGB CONC 35 g/dl (31.0-36.0); MEAN CORPUSCULAR VOLUME 87 fL (80-96); MONOCYTES # (AUTO) 0.7 K/uL (0.1-1.30); MONOCYTES % (AUTO) 8.1 % (2.0-12.0); NEUTROPHILS # (AUTO) 5.4 K/uL (1.8-8.9); PLATELET COUNT (AUTO) 207 K/uL (150-450); WHITE BLOOD COUNT (AUTO) 8.3 K/uL (4.3-11.0)
[2022-09-14] MEDS: IV D5/0.45 NACL 1,000 ML IV PRN (06:21)
[2022-09-14 06:39] LABS: ALBUMIN 3.3 g/dL (3.4-5.0); BILIRUBIN,TOTAL 0.8 mg/dL (0.2-1.0); CALCIUM, SERUM 8.5 mg/dL (8.5-10.1); CREATININE 0.7 mg/dL (0.6-1.3); MAGNESIUM 1.9 mg/dL (1.8-2.4); POTASSIUM 3.2 mmol/L (3.5-5.1); TOTAL PROTEIN, SERUM 6.5 g/dL (6.4-8.2)
--- NOTE | 2022-09-14 08:05 | NUR ---
ICU/SUPERVISOR RESEARCH SHOP TEAM AT BEDSIDE, PICKING UP PT FOR SCHEDULED PROCEDURE THIS AM. FATHER AT BEDSIDE. PT VERBALIZES UNDERSTANDING OF THE PROCEDURE.
[2022-09-14] MEDS: ASPIRIN 325 MG TABLET NG SCH (08:32)
[2022-09-14] MEDS: EDARBI 80 MG NG SCH (08:32)
[2022-09-14] MEDS: METOPROLOL TARTRATE 25 MG TABLET NG SCH ×3 (08:32→16:30)
[2022-09-14] MEDS ORDERED: FENTANYL PF 100MCG/2ML AMPUL ONE (08:51)
[2022-09-14] MEDS ORDERED: MIDAZOLAM HCL 2 MG/2ML VIAL ONE (08:52)
[2022-09-14] MEDS: PANTOPRAZOLE 40 MG/PACK PACK NG SCH (09:00)
[2022-09-14] MEDS ORDERED: POTASSIUM CL. PREMIX PERIPHER. 50 ML IV SCH ×2 (09:30→11:30)
[2022-09-14] MEDS: QUETIAPINE FUMARATE 25 MG TABLET PO SCH ×3 (10:23→21:37)
--- NOTE | 2022-09-14 10:29 | NUR ---
ICU/RN PT BACK FROM SURGERY. PT AWAKE AND ALERT X3. MOTHER QAMAR AT BEDSIDE. PT COOPERATIVE, TOOK HIS MEDICATION. PT REQUESTING TYLENOL FOR MINOR DISCOMFORT. PT URINATED 100ML OF BLOODY URINE.
[2022-09-14] MEDS: LACOSAMIDE 150 MG in IV NS 0.9% 50 ML IV SCH ×2 (10:42→23:00)
[2022-09-14] MEDS: POTASSIUM CHLORIDE 20 MEQ TAB.PRT.SR PO SCH ×2 (11:09→12:21)
--- NOTE | 2022-09-14 15:00 | NUR ---
EXECUTIVE STEWARDGRADE FOREMAN NOTES; PT RECEIVED FROM ICU STAFF VIA WHEELCHAIR, REPORT RECEIVED AT BEDSIDE FROM NAKUL TRIPLETT. PT IS AWAKE, ALERT AND ORIENTED X4, ABLE TO MAKE NEEDS KNOWN. PT OBSERVED AMBULATING FROM WHEELCHAIR TO BED. STABLE ON RA, NO S/S OF SOB AND ACUTE DISTRESS, DENIES PAIN AT THE MOMENT. VITALS WNL, TELE MONITOR READING SR, HR- 73. IV ACCESS AT R HAND # 18, INFUSING D5 1/2 NS @ 75ML/HR. IV ACCESS L IJ# 22, SL, PATENT AND INTACT. ORIENTED PT TO STAFF AND UNIT. PT ASKED TO ALERT HIS FAMILY THAT HE TRANSFERRED UNIT, RN WILL CALL PT'S DAD MACHO. ENCOURAGED TO USE CALL LIGHT FOR ANY ASSISTANCE, PT IS AGREEABLE AND COOPERATIVE. SAFETY MEASURES IN PLACE, CALL LIGHT AND TABLE WITHIN REACH, WILL CONT WITH PLAN OF CARE DURING SHIFT.
--- NOTE | 2022-09-14 18:50 | NUR ---
WHARF BUILDER CLOSING NOTES: PT IS ASLEEP, ALERT AND ORIENTED X4, ABLE TO MAKE NEEDS KNOWN. STABLE ON RA, NO S/S OF SOB AND ACUTE DISTRESS, DENIES PAIN AT THE MOMENT. VITALS WNL, TELE MONITOR READING SR, HR- 74. IV ACCESS AT R HAND # 18, D5 1/2 NS PAUSED FOR NOW, PT OFF OF NPO STATUS. IV ACCESS L IJ# 22, SL, PATENT AND INTACT. SITTER AT BEDSIDE. ENCOURAGED PT TO USE CALL LIGHT FOR ANY ASSISTANCE, PT IS AGREEABLE AND COOPERATIVE. SAFETY MEASURES IN PLACE, CALL LIGHT AND TABLE WITHIN REACH, WILL CONT WITH PLAN OF CARE DURING SHIFT. Addendum: 09/14/22 at 1856 by DULCE LNAG RN WILL ENDORSE TO PM SHIFT.
--- NOTE | 2022-09-14 19:45 | NUR ---
ANESTHESIOLOGY TECH OPENING NOTES: RECEIVED PT ASLEEP, ALERT AND ORIENTED X4, ABLE TO MAKE NEEDS KNOWN. STABLE ON RA, NO S/S OF SOB AND ACUTE DISTRESS, DENIES PAIN AT THE MOMENT. VITALS WNL, TELE MONITOR READING SR, HR- 74. IV ACCESS AT R HAND # 18, D5 1/2 NS PAUSED FOR NOW. IV ACCESS L IJ# 22, SL, PATENT AND INTACT. ENCOURAGED PT TO USE CALL LIGHT FOR ANY ASSISTANCE, PT IS AGREEABLE AND COOPERATIVE. SAFETY MEASURES IN PLACE, CALL LIGHT AND TABLE WITHIN REACH, WILL CONT WITH PLAN OF CARE DURING SHIFT.
[2022-09-14] MEDS ORDERED: KEY,NONCONTROL,TO KEEP IN PYXI 1 EA MC ONE ×3 (21:11→23:56)
[2022-09-14] MEDS: ATORVASTATIN 40 MG TABLET NG SCH (21:37)
[2022-09-15] VITALS: BP 146/94
--- NOTE | 2022-09-15 03:36 | NUR ---
RN NOTES PATIENT'S URETHRAL OPENING (PENIS) WAS BLEEDING SCANT BRIGHT RED. NO PAIN OR DISCOMFORT VERBALIZED. WILL INFORM DR. VALDEZ
[2022-09-15 04:00] VITALS: BP 138/91
[2022-09-15 06:45] LABS: ALBUMIN 3.4 g/dL (3.4-5.0); BILIRUBIN,TOTAL 0.8 mg/dL (0.2-1.0); CALCIUM, SERUM 8.6 mg/dL (8.5-10.1); CREATININE 0.8 mg/dL (0.6-1.3); MAGNESIUM 2.1 mg/dL (1.8-2.4); PHOSPHORUS 2.8 mg/dL (2.5-4.9); POTASSIUM 3.6 mmol/L (3.5-5.1); TOTAL PROTEIN, SERUM 6.5 g/dL (6.4-8.2)
[2022-09-15 07:00] VITALS: BP 145/93
--- NOTE | 2022-09-15 07:25 | NUR ---
HUMAN RESOURCE STATISTICIAN OPENING NOTE RECEIVE PT AWAKE AND RESTING IN BED. PT A/O X4, ABLE TO MAKE NEEDS KNOWN. ON RA, TOLERATING WELL. NO SOB NOTED. NOT IN ANY SIGN OF RESPIRATORY DISTRESS. ON TELE MORTICIAN INVESTIGATOR WITH CURRENT READING AT SINUS RHYTHM, HR 70. NO C/O CARDIAC DISTRESS VOICED OUT AT THIS TIME. IV ACCESS ON RIGHT HAND G#18 AND LEFT NECK INTERNAL JUGULAR G#22 INTACT AND PATENT. SAFETY MEASURES IN PLACE: BED IN LOWEST AND LOCKED POSITION, BED ALARM ON, SIDE RAILS UP X2, AND CALL LIGHT WITHIN REACH. WILL CONTINUE TO MONITOR PT.
[2022-09-15] MEDS ORDERED: LACOSAMIDE 150 MG in IV NS 0.9% 50 ML IV SCH (07:30)
[2022-09-15 07:52] LABS: BASOPHILS # (AUTO) 0.1 K/uL (0.0-0.2); BASOPHILS % (AUTO) 0.6 % (0.0-2.0); EOSINOPHILS % (AUTO) 1.7 % (0.0-6.0); HEMATOCRIT 40 % (39-51); HEMOGLOBIN 13.5 g/dL (13.5-17.5); LYMPHOCYTES # (AUTO) 2.4 K/uL (0.8-4.8); LYMPHOCYTES % (AUTO) 28.7 % (20.0-44.0); MEAN CORPUSCULAR HGB CONC 34 g/dl (31.0-36.0); MEAN CORPUSCULAR VOLUME 88 fL (80-96); MONOCYTES # (AUTO) 0.7 K/uL (0.1-1.30); MONOCYTES % (AUTO) 8.5 % (2.0-12.0); NEUTROPHILS % (AUTO) 60.5 % (43.0-81.0); PLATELET COUNT (AUTO) 208 K/uL (150-450); RED BLOOD CELL COUNT(AUTO) 4.61 MIL/uL (4.5-6.0); WHITE BLOOD COUNT (AUTO) 8.3 K/uL (4.3-11.0)
--- NOTE | 2022-09-15 07:56 | NUR ---
FURNITURE MOVER DRIVER CLOSING NOTES: PT ASLEEP, ALERT AND ORIENTED X4, ABLE TO MAKE NEEDS KNOWN. STABLE ON RA, NO S/S OF SOB AND ACUTE DISTRESS, DENIES PAIN AT THE MOMENT. VITALS WNL, TELE MONITOR READING SR, HR- 74. IV ACCESS AT R HAND # 18, D5 1/2 NS PAUSED FOR NOW. IV ACCESS L IJ# 22, SL, PATENT AND INTACT. ENCOURAGED PT TO USE CALL LIGHT FOR ANY ASSISTANCE, PT IS AGREEABLE AND COOPERATIVE. SAFETY MEASURES IN PLACE, CALL LIGHT AND TABLE WITHIN REACH, WILL CONT WITH PLAN OF CARE DURING SHIFT.
[2022-09-15] MEDS: QUETIAPINE FUMARATE 25 MG TABLET PO SCH ×3 (08:49→21:14)
[2022-09-15] MEDS: ASPIRIN 325 MG TABLET NG SCH (08:49)
[2022-09-15] MEDS: PANTOPRAZOLE 40 MG/PACK PACK NG SCH (08:49)
[2022-09-15] MEDS: METOPROLOL TARTRATE 25 MG TABLET NG SCH ×2 (08:50→17:03)
[2022-09-15] MEDS: EDARBI 80 MG NG SCH (08:50)
--- NOTE | 2022-09-15 12:50 | NUR ---
RN NOTE DR. MCWILLIAMS ORDERED CT ANGIO HEART WITH 3D IMAGE. MADE DR. MCWILLIAMS AWARE THAT PT IS ALLERGIC TO IODINE. PER DR. MCWILLIAMS, TO CALL RADIOLOGY AND SEE IF THE TABLE CAN ACCOMMODATE HIM AND IF THEY CAN DO THE PROCEDURE TODAY IF SO THEN BENADRYL 50MG PO AND SOLUMEDROL 100 IVP 30 MINUTES BEFORE. WILL FOLLOW UP WITH RADIOLOGY.
[2022-09-15] MEDS: PIPERACILLIN /TAZOBACTAM 3.375 G in IV D5W 100 ML IV SCH ×2 (13:26→21:19)
--- NOTE | 2022-09-15 14:00 | NUR ---
RN NOTE CALLED RADIOLOGY X3 TO LET THEM KNOW OF DR. JOHNSON STATEMENT ON THE ALLERGY, BUT NO ONE ANSWERED. ALSO ATTEMPTED TO GET CONSENT FOR CT ANGIO HEART WITH 3D IMAGE. PT REFUSED TO SIGN DUE TO FEAR OF ALLERGIC REACTION TO IODINE. DESPITE OF EXPLAINING TO THE PT THAT DR. MCWILLIAMS ORDERED BENADRYL AND SOLUMEDROL. PT STILL REFUSED SIGN.
[2022-09-15 16:00] VITALS: BP 136/94
--- NOTE | 2022-09-15 19:27 | NUR ---
UNIT CONTROL CLERK CLOSING NOTE PT AWAKE AND RESTING IN BED. PT A/O X4, ABLE TO MAKE NEEDS KNOWN. ON RA, TOLERATING WELL. NO SOB NOTED. NOT IN ANY SIGN OF RESPIRATORY DISTRESS. ON TELE TOOL AND DIE DESIGNER WITH CURRENT READING AT SINUS RHYTHM, HR 70. NO C/O CARDIAC DISTRESS VOICED OUT AT THIS TIME. IV ACCESS ON LEFT NECK INTERNAL JUGULAR G#22 INTACT AND PATENT. PT HAS AN ORDER FOR IV D5 1/2 NS TO BE INFUSE AT 75ML/HAT THIS TIME, BUT PT REFUSED IT TO BE INFUSE AT THIS TIME. EXPLAIN RISK AND BENEFITS X3, STILL REFUSED. ALL NEEDS ATTENDED. KEPT CLEAN AND COMFORTABLE. SAFETY MEASURES IN PLACE: BED IN LOWEST AND LOCKED POSITION, BED ALARM ON, SIDE RAILS UP X2, AND CALL LIGHT WITHIN REACH. ENDORSED TO SPRING COILER NURSE FOR UZMA.
--- NOTE | 2022-09-15 20:21 | NUR ---
RN OPENING NOTES RECEIVED PT AWAKE AND RESTING IN BED. PT A/O X4. SPOKE TO THE FAMILY MEMBER. ABLE TO MAKE NEEDS KNOWN. ON RA, TOLERATING WELL. NO SOB NOTED. NOT IN ANY SIGN OF RESPIRATORY DISTRESS. ON TELE TRUCK DISPATCHER WITH CURRENT READING AT SINUS RHYTHM, HR 70. NO C/O CARDIAC DISTRESS VOICED OUT AT THIS TIME. IV ACCESS ON LEFT NECK INTERNAL JUGULAR G#22 INTACT AND PATENT. ALL NEEDS ATTENDED. KEPT CLEAN AND COMFORTABLE. SAFETY MEASURES IN PLACE: BED IN LOWEST AND LOCKED POSITION, BED ALARM ON, SIDE RAILS UP X2, AND CALL LIGHT WITHIN REACH. WILL CONTINUE TO MONITOR.
[2022-09-15 20:49] VITALS: BP 145/94
[2022-09-15] MEDS: ATORVASTATIN 40 MG TABLET NG SCH (21:14)
[2022-09-15] MEDS: LACOSAMIDE 50 MG TABLET PO SCH (21:31)
--- NOTE | 2022-09-15 21:40 | NUR ---
RN NOTES SHOULD HAVE REMOVED 3 TABLETS VIMPAT, BUT ONLY TOOK 1 TABLET. WENT TO THE OMNICELL TO TAKE 2 MORE TABLETS, TOTAL REMOVED 3 TABLETS (150MG) PER MD ORDER. INFORMED BERLIN.
[2022-09-16 00:54] VITALS: BP 154/99
[2022-09-16] MEDS: PIPERACILLIN /TAZOBACTAM 3.375 G in IV D5W 100 ML IV SCH (04:47)
[2022-09-16 05:09] VITALS: BP 133/91
--- NOTE | 2022-09-16 07:25 | NUR ---
HOME SCHOOL TEACHER OPENING NOTES RECEIVED PT AWAKE AND RESTING IN BED. PT A/O X4 WITH FORGET FULNESS . ABLE TO MAKE NEEDS KNOWN. ON RA, TOLERATING WELL. NO SOB NOTED. NOT IN ANY SIGN OF RESPIRATORY DISTRESS. ON TELE VALIDATION SOFTWARE FACILITATOR WITH CURRENT READING AT SINUS RHYTHM, HR 69. NO C/O CARDIAC DISTRESS VOICED OUT AT THIS TIME. IV ACCESS ON LEFT NECK INTERNAL JUGULAR G#22 INTACT AND PATENT. ALL NEEDS ATTENDED. KEPT CLEAN AND COMFORTABLE. SAFETY MEASURES IN PLACE: BED IN LOWEST AND LOCKED POSITION, BED ALARM ON, SIDE RAILS UP X2, AND CALL LIGHT WITHIN REACH. WILL CONTINUE TO MONITOR.
--- NOTE | 2022-09-16 07:38 | NUR ---
PARKING PATROLLER CLOSING NOTE PT AWAKE AND RESTING IN BED. PT A/O X4, ABLE TO MAKE NEEDS KNOWN. ON RA, TOLERATING WELL. NO SOB NOTED. NOT IN ANY SIGN OF RESPIRATORY DISTRESS. ON TELE INPATIENT CARE MANAGER RN WITH CURRENT READING AT SINUS RHYTHM, HR 69. NO C/O CARDIAC DISTRESS VOICED OUT AT THIS TIME. IV ACCESS ON LEFT NECK INTERNAL JUGULAR G#22 INTACT AND PATENT. ALL NEEDS ATTENDED. KEPT CLEAN AND COMFORTABLE. SAFETY MEASURES IN PLACE: BED IN LOWEST AND LOCKED POSITION, BED ALARM ON, SIDE RAILS UP X2, AND CALL LIGHT WITHIN REACH. ENDORSED TO DAY SHIFT NURSE FOR UZMA.
[2022-09-16 08:31] VITALS: BP 147/97
[2022-09-16] MEDS: EDARBI 80 MG NG SCH (09:50)
[2022-09-16] MEDS: PANTOPRAZOLE 40 MG/PACK PACK NG SCH (09:50)
[2022-09-16] MEDS: METOPROLOL TARTRATE 25 MG TABLET NG SCH ×2 (09:51→17:36)
[2022-09-16] MEDS: QUETIAPINE FUMARATE 25 MG TABLET PO SCH ×2 (09:51→14:14)
[2022-09-16] MEDS: ASPIRIN 325 MG TABLET NG SCH (09:51)
[2022-09-16] MEDS: LACOSAMIDE 50 MG TABLET PO SCH (09:51)
[2022-09-16] MEDS ORDERED: Quetiapine Fumarate PO (12:07)
[2022-09-16] MEDS ORDERED: LACO50TA2 PO (12:07)
[2022-09-16] MEDS ORDERED: ASPI-1420 PO (12:07)
[2022-09-16] MEDS ORDERED: METO25TA20 NG (12:07)
[2022-09-16] MEDS ORDERED: diphenhydrAMINE HCL 50 MG CAPSULE PO ONE (14:00)
[2022-09-16] MEDS ORDERED: methylPREDNISolone SOD SUCC 125 MG/2ML VIAL IV ONE (14:15)
[2022-09-16] MEDS ORDERED: methylPREDNISolone SOD SUCC 40 MG/ML VIAL IV ONE (14:30)
--- NOTE | 2022-09-16 16:00 | NUR ---
RN NOTES PATIENT WENT FOR [facility] , CONSENT SIGNED , BENADRYL GIVEN AND SOLUMEDROL IV OF 60 MG ORDERED GIVEN BEFORE THE PROCEDURE
[2022-09-16] MEDS ORDERED: IV NS 0.9% 250 ML IV ONE ×2 (16:06→16:45)
[2022-09-16] MEDS ORDERED: METOPROLOL TARTRATE INJ 5 MG/5 ML AMPUL ONE (16:06)
[2022-09-16] MEDS ORDERED: IOHEXOL-350 100 ML VIAL IV ONE ×2 (16:06→16:45)
[2022-09-16 16:16] VITALS: BP 164/102
[2022-09-16 17:36] VITALS: BP 164/102
--- NOTE | 2022-09-16 19:30 | NUR ---
PATTERN ILLUSTRATOR NOTES PT AWAKE AND RESTING IN BED. PT A/O X4 WITH FORGETFULNESS . ABLE TO MAKE NEEDS KNOWN. ON RA, TOLERATING WELL. NO SOB NOTED. NOT IN ANY SIGN OF RESPIRATORY DISTRESS. ON TELE FOUNDRY METALLURGIST WITH CURRENT READING AT SINUS RHYTHM, HR 69. NO C/O CARDIAC DISTRESS VOICED OUT AT THIS TIME. IV ACCESS ON LEFT NECK INTERNAL JUGULAR G#22 INTACT AND PATENT. ALL DUE MEDS ORDERED . WITH ORDER FOR DISCHARGE TO HOME ONCE [facility]CA DONE AND CLEARED BY GROOMING ASSISTANT DR MCWILLIAMS AND DR CHANDRA , [facility] DONE AND WITH RESULT AND DR MCWILLIAMS OKEYED TO DISCHARGE PATIENT , DISCHARGE INSTRUCTIONS PROVIDED REGARDING MEDICATIONS , FOLLOW UP WITH PCP AND NEUROLOGIST , SAFETY AND WHEN TO CALL 911 IN CASE OF EMERGENCY, ALL BELONGING WERE ACCOUNTED FOR AND SIGNED BY THE PATIENT , MACHO THE FATHER PROVIDED TRANSPORTATION , ALL IV ACCESS WAS REMOVED AND ID BAND AND PATIENT LEFT WITH NO C/O OF PAIN AND DISCOMFORT AND NO SOB OF DISTRESS NOTED .
[2022-09-16] MEDS ORDERED: LACO150T2 PO (21:21)
== END 2022-09-16 20:00 | disposition home or self-care (01) | DRG 100 ==
LOC: ER 16:24 → ICU 20:29 → TELE 09-14 15:07
PROVIDERS: ADMIT Nurse Practitioner Family
PROC: 5A1945Z Respiratory Ventilation, 24-96 Consecutive Hours (ICD-10-PCS; principal; 2022-09-10)
PROC: 0BH18EZ Insertion of Endotracheal Airway into Trachea, Via Natural or Artificial Opening Endoscopic (ICD-10-PCS; 2022-09-10)
PROC: 0TJB8ZZ Inspection of Bladder, Via Natural or Artificial Opening Endoscopic (ICD-10-PCS; 2022-09-14)
DX: G40.401 Other generalized epilepsy and epileptic syndromes, not intractable, with status epilepticus (principal); I21.A1 Myocardial infarction type 2; J96.01 Acute respiratory failure with hypoxia; N17.0 Acute kidney failure with tubular necrosis; E87.1 Hypo-osmolality and hyponatremia; E87.20 Acidosis, unspecified; R65.10 Systemic inflammatory response syndrome (SIRS) of non-infectious origin without acute organ dysfunction; G93.40 Encephalopathy, unspecified; Z91.041 Radiographic dye allergy status; Z79.899 Other long term (current) drug therapy; Z98.890 Other specified postprocedural states; I10 Essential (primary) hypertension; Z80.1 Family history of malignant neoplasm of trachea, bronchus and lung; Z83.3 Family history of diabetes mellitus; F12.90 Cannabis use, unspecified, uncomplicated; F39 Unspecified mood [affective] disorder; J34.1 Cyst and mucocele of nose and nasal sinus
CPT/HCPCS: 31720; 36415; 36600; 70450-TC; 71045-TC; 75574; 76770-TC; 76856-TC; 80048-TC; 80053-TC; 80061-TC; 80076-TC; 80164-TC; 80184; 80185-TC; 81001; 82550-TC; 82553; 82803-TC; 83605-TC; 83735-TC; 84100-TC; 84443-TC; 84484-TC; 85025-TC; 85610-TC; 85730-TC; 87040-TC; 87081-TC; 93307-TC; 94003-TC; 94799-TC; 95819-TC; A4217; A6403; C9113; C9803; G0378; G0480; J0692; J1100; J1644; J1953; J2060; J2250; J2405; J2543; J2704; J2920; J3010; J3370; J3490; J7030; J7042; J7050; J7060; Q0163; Q9967

== ENCOUNTER 2023-02-20 23:39 | Emergency (ER) | payer SELFPAY ==
[~2023-02-20] VITALS: Ht 182.9 cm; Wt 136.1 kg
[~2023-02-20 23:39] MED LIST changes: +ASPI-1420 PO; +ATOR40TA PO; +AZIL80TA PO; +LACO150T2 PO; +LACO50TA2 PO; -LEVE500T20 PO; -LORA-259 PO; +METO25TA20 NG; +Quetiapine Fumarate PO; +[UNRECOGNIZED DRUG - CODE] PO
--- NOTE | 2023-02-21 00:02 | NUR ---
[id number]. FOCAL SEIZURE WITNESSED BY PARTNER X30 SECONDS -TRAUMA. +HX OF SEIZURE ON VIMPAT WITH NO MISSED DOSES. ON ASSESSMENT, PT AWAKE AND ALERTX4 ACTING APPROPRIATE. CHANGED INTO GOWN AND PLACED ON MONITOR AND V/S WNL.
--- NOTE | 2023-02-21 00:11 | NUR ---
18G IV STARTED AT [facility]
[2023-02-21 00:31] LABS: BASOPHILS % (AUTO) 0.4 % (0.0-2.0); EOSINOPHILS % (AUTO) 3.1 % (0.0-6.0); HEMATOCRIT 44 % (39-51); HEMOGLOBIN 14.5 g/dL (13.5-17.5); LYMPHOCYTES # (AUTO) 3.8 K/uL (0.8-4.8); LYMPHOCYTES % (AUTO) 45.2 % (20.0-44.0); MEAN CORPUSCULAR HGB CONC 33 g/dl (31.0-36.0); MEAN CORPUSCULAR VOLUME 87 fL (80-96); MONOCYTES # (AUTO) 0.7 K/uL (0.1-1.30); MONOCYTES % (AUTO) 8.1 % (2.0-12.0); NEUTROPHILS # (AUTO) 3.6 K/uL (1.8-8.9); NEUTROPHILS % (AUTO) 43.2 % (43.0-81.0); PLATELET COUNT (AUTO) 193 K/uL (150-450); RED BLOOD CELL COUNT(AUTO) 5.03 MIL/uL (4.5-6.0); WHITE BLOOD COUNT (AUTO) 8.4 K/uL (4.3-11.0)
[2023-02-21 00:44] LABS: ALANINE AMINOTRANSFERASE 59 U/L (12-78); ALBUMIN 4.5 g/dL (3.4-5.0); ALKALINE PHOSPHATASE 64 U/L (46-116); ASPARTATE AMINOTRANSFERASE 32 U/L (15-37); BILIRUBIN,DIRECT 0.1 mg/dL (0.0-0.2); BILIRUBIN,TOTAL 0.5 mg/dL (0.2-1.0); CALCIUM, SERUM 9.1 mg/dL (8.5-10.1); CARBON DIOXIDE 29 mmol/L (21-32); CHLORIDE 104 mmol/L (98-107); GLUCOSE 90 mg/dL (74-106); POTASSIUM 4.3 mmol/L (3.5-5.1); SODIUM SERUM 141 mmol/L (136-145); TOTAL PROTEIN, SERUM 7.3 g/dL (6.4-8.2); UREA NITROGEN, BLOOD 18 mg/dL (7-18)
[2023-02-21 00:50] LABS: ALCOHOL, BLOOD < 3 mg/dL (0-0)
[2023-02-21 01:25] LABS: BILIRUBIN,URINE NEGATIVE (NEGATIVE); COLOR,URINE YELLOW (YELLOW); LEUKOCYTE ESTERASE ,URINE NEGATIVE (NEGATIVE); NITRITE, URINE NEGATIVE (NEGATIVE); PROTEIN,URINE NEGATIVE (NEGATIVE); UGLUCOSE NEGATIVE (NEGATIVE); UROBILINOGEN,URINE 0.2 EU/dL (0.2)
[2023-02-21 01:47] VITALS: BP 121/78
== END 2023-02-21 01:47 | disposition home or self-care (01) ==
LOC: ER 23:45
DX: G40.909 Epilepsy, unspecified, not intractable, without status epilepticus (principal); Z88.8 Allergy status to other drugs, medicaments and biological substances; Z79.899 Other long term (current) drug therapy
CPT/HCPCS: 36415; 71045-TC; 80048-TC; 80076-TC; 85025-TC; 85730-TC; G0480

== ENCOUNTER 2023-12-25 08:56 | Emergency (ER) | payer BC, OTHER ==
[~2023-12-25] VITALS: Ht 193 cm; Wt 136.1 kg
[2023-12-25 09:34] VITALS: BP 137/93; TEMP 98; O2SAT 98
== END 2023-12-25 09:40 | disposition home or self-care (01) ==
LOC: ER 08:56
DX: R56.9 Unspecified convulsions (principal); Z88.8 Allergy status to other drugs, medicaments and biological substances

== ENCOUNTER 2024-10-31 12:56 | Emergency (ER) | payer BC, OTHER ==
[~2024-10-31] VITALS: Ht 193 cm; Wt 136.1 kg
[2024-10-31 13:03] VITALS: TEMP 97.9
[2024-10-31 14:26] VITALS: BP 145/88; O2SAT 98
== END 2024-10-31 14:24 | disposition home or self-care (01) ==
LOC: ER 12:57
DX: R56.9 Unspecified convulsions (principal); F12.90 Cannabis use, unspecified, uncomplicated; I10 Essential (primary) hypertension; Z79.82 Long term (current) use of aspirin; Z88.8 Allergy status to other drugs, medicaments and biological substances; Z91.041 Radiographic dye allergy status

== ENCOUNTER 2024-12-13 19:25 | Emergency (ER) | payer BC ==
[~2024-12-13] VITALS: Ht 193 cm; Wt 140.6 kg
[2024-12-13 20:09] VITALS: BP 146/88; TEMP 98.1; O2SAT 98
== END 2024-12-13 20:10 | disposition home or self-care (01) ==
LOC: ER 19:27
DX: G40.909 Epilepsy, unspecified, not intractable, without status epilepticus (principal); F12.90 Cannabis use, unspecified, uncomplicated; I10 Essential (primary) hypertension; Z79.82 Long term (current) use of aspirin; Z88.8 Allergy status to other drugs, medicaments and biological substances; Z91.041 Radiographic dye allergy status

== ENCOUNTER 2025-09-17 15:37 | Emergency (ER) | payer BC, MEDICAID ==
[~2025-09-17] VITALS: Ht 190.5 cm; Wt 164.7 kg
[2025-09-17] MEDS: IV LR 1000 ML 1,000 ML IV ONE (16:18)
[2025-09-17 16:26] LABS: PLATELET COUNT (AUTO) 232 K/uL (150-450); RED BLOOD CELL COUNT(AUTO) 5.35 MIL/uL (4.5-6.0); RED CELL DISTRIBUTION WIDTH 14.0 % (11.5-15.0); WHITE BLOOD COUNT (AUTO) 10.5 K/uL (4.3-11.0)
[2025-09-17 16:34] LABS: CALCIUM, SERUM 9.1 mg/dL (8.5-10.1); CREATININE 1.1 mg/dL (0.6-1.3); SODIUM SERUM 139 mmol/L (136-145); UREA NITROGEN, BLOOD 17 mg/dL (7-18)
[2025-09-17 16:36] LABS: ALCOHOL, BLOOD < 3 mg/dL (0-10)
[2025-09-17 16:39] LABS: ASPARTATE AMINOTRANSFERASE 37.0 U/L (15-37); INR 0.97 (0.91-1.10); TOTAL PROTEIN, SERUM 7.5 g/dL (6.4-8.2)
[2025-09-17] MEDS: CLOBAZAM 10 MG TABLET PO STA (17:32)
[2025-09-17] MEDS: LACOSAMIDE 150 MG in IV NS 0.9% 50 ML IV STA (17:32)
[2025-09-17 18:09] VITALS: BP 133/80; TEMP 98.8; O2SAT 99
[2025-09-17 18:35] LABS: AMPHETAMINE, URINE NEGATIVE (NEGATIVE); BARBITURATE, URINE NEGATIVE (NEGATIVE); BENZODIAZEPINE, URINE NEGATIVE (NEGATIVE); COCCAINE, URINE NEGATIVE (NEGATIVE); OPIATE, URINE NEGATIVE (NEGATIVE)
[2025-09-17 18:37] LABS: CANNABINOID, URINE POSITIVE (NEGATIVE)
== END 2025-09-17 17:41 | disposition home or self-care (01) ==
LOC: ER 17:17
DX: G40.909 Epilepsy, unspecified, not intractable, without status epilepticus (principal); R32 Unspecified urinary incontinence; I10 Essential (primary) hypertension; F12.90 Cannabis use, unspecified, uncomplicated; Z79.82 Long term (current) use of aspirin; Z88.8 Allergy status to other drugs, medicaments and biological substances; Z98.890 Other specified postprocedural states; Z79.899 Other long term (current) drug therapy
CPT/HCPCS: 99284; 96360; 93005; 85025; 80048; 80076; 36415; 85730; 82962; 80320; 80307; J7120 ×2; G0480